=== PATIENT | female | born 1955 | race Caucasian/White ===

== ENCOUNTER → 2017-06-01 | Outpatient (CLI) | payer BC ==
[~2017-06-01] MED LIST: HCTZ; NORCO 5-325 TA1 EACH PO; SYNTHROID; ZOLOFT
== END ==
LOC: RAD 01:39
DX: Z12.31 Encounter for screening mammogram for malignant neoplasm of breast (principal)

== ENCOUNTER → 2018-06-02 | Outpatient (CLI) | payer BC | LOC: RAD 01:09 | DX: Z12.31 Encounter for screening mammogram for malignant neoplasm of breast (principal) ==

== ENCOUNTER → 2018-06-04 | Outpatient (CLI) | payer BC | LOC: RAD 14:25 | DX: R92.1 Mammographic calcification found on diagnostic imaging of breast (principal); R92.8 Other abnormal and inconclusive findings on diagnostic imaging of breast ==

== ENCOUNTER 2018-12-31 21:33 | Inpatient (IN) | payer BC ==
[~2018-12-31] VITALS: Ht 154.9 cm; Wt 64.0 kg
[2018-12-31 21:58] LABS: BASOPHILS 1.3 % (0.0-2.0); EOSINOPHILS 3.5 % (0.0-3.0); HEMATOCRIT 35.8 % (37.0-47.0); HEMOGLOBIN 12.2 gm/dL (12.0-15.0); LYMPHOCYTES 47.2 % (24.0-44.0); MCH 32.8 pg (26.0-34.0); MCV 96.4 fL (80.0-100.0); MONOCYTES 9.3 % (1.0-8.0); PLATELET COUNT 250 thou/uL (150-400); POLYS 38.7 % (36.0-66.0); RBC 3.71 mil/uL (4.20-5.00); RDW 12.5 % (10.5-14.5); WBC 7.7 thou/uL (4.0-11.0)
[2018-12-31 22:07] LABS: CALCIUM 8.2 mg/dL (8.5-10.1); CREATININE 0.5 mg/dL (0.6-1.0); POTASSIUM 3.7 mmol/L (3.5-5.1)
[2018-12-31 22:12] LABS: ALBUMIN 3.7 g/dL (3.4-5.0); TOTAL BILIRUBIN 0.3 mg/dL (<0.1-1.0); TOTAL PROTEIN 7.3 g/dL (6.4-8.2)
[2019-01-01] VITALS (7 sets, daily range): BP systolic 91–123; BP diastolic 34–83
--- NOTE | 2019-01-01 02:30 | NUR ---
Pt. admitted to the unit from the emergency room via stretcher accompanied by staff and her son. She is alert and oriented. Admission assessment and history is completed. She c/o left knee pain and was given pain med (see emar) with some relief. Zofran given for nausea (see emar) with relief. Also, ativan given for anxiety (see emar). Bed alarm is on.
[2019-01-01 04:13] LABS: CALCIUM 7.2 mg/dL (8.5-10.1); CREATININE 0.5 mg/dL (0.6-1.0); MAGNESIUM 1.4 mg/dL (1.8-2.4); POTASSIUM 3.6 mmol/L (3.5-5.1)
[2019-01-01 04:36] LABS: HEMATOCRIT 32.6 % (37.0-47.0); HEMOGLOBIN 11.2 gm/dL (12.0-15.0); MCH 33.4 pg (26.0-34.0); MCHC 34.3 g/dL (28.0-37.0); MCV 97.2 fL (80.0-100.0); RBC 3.36 mil/uL (4.20-5.00); RDW 12.4 % (10.5-14.5); WBC 9.1 thou/uL (4.0-11.0)
[2019-01-01 08:28] LABS: ALBUMIN 3.1 g/dL (3.4-5.0); CREATININE 0.5 mg/dL (0.6-1.0); POTASSIUM 3.7 mmol/L (3.5-5.1); TOTAL BILIRUBIN 0.6 mg/dL (<0.1-1.0); TOTAL PROTEIN 6.2 g/dL (6.4-8.2)
[2019-01-01 09:05] LABS: URINE BILIRUBIN NEGATIVE (Negative); URINE BLOOD 1+ (Negative); URINE CLARITY CLEAR; URINE COLOR YELLOW; URINE GLUCOSE-RANDOM* NEGATIVE (Negative); URINE KETONES 1+ (Negative); URINE LEUKOCYTES-REFLEX NEGATIVE (Negative); URINE NITRITE-REFLEX NEGATIVE (Negative); URINE PROTEIN (DIPSTICK) NEGATIVE (Negative); URINE UROBILINOGEN 0.2 E.U./dl (0.2-1.0)
[2019-01-01 09:17] LABS: BACTERIA-REFLEX None Seen /HPF (None Seen); CASTS None Seen /LPF (None Seen); CRYSTALS None Seen /LPF (None Seen); SQUAMOUS 0-3 Few /LPF (0-3); URINE RBC 0-2 Rare /HPF (0-2); URINE WBC-REFLEX 0-5 Rare /HPF (0-5)
--- NOTE | 2019-01-01 20:41 | NUR ---
PATIENT ALERT AND ORIENTED. PATIENT ANTICIPATING SURGERY TOMORROW AM WITH MD EUGENE. PATIENT SISTER, LEA, VERY SUPPORTIVE ([phone]) AND SON ABDULLAHI AT BEDSIDE IN ADDITION TO MANY FRIENDS AND FAMILY MEMBERS. NIGHT NURSE INFORMED OF ICE PACKS TO LEG AND TO NOTIFY CASH VAN SALESPERSON IF NA LAB LEVEL BELOW 130. PATIENT PAIN CONTROLLED WITH IV AND PO PAIN MEDS. PLAN OF CARE EXPLAINED TO PATIENT AND FAMILY.
[2019-01-02 03:37] VITALS: BP 122/56
--- NOTE | 2019-01-02 04:03 | NUR ---
Pt. has rested quietly at intervals during the night when checked on during frequent rounds. She has been medicated for c/o pain to the left knee (see emar) with some relief noted. Pt. also requesting some meds to help her relax and prn ativan given (see emar) with some relief noted. Na level gradually increasing. Francie DE LUNA notified of 0000 Na that resulted with new orders to increase ivf to 125 ml/hr. Immobilzer in place to left knee. Ice packs being applied throughout the shift. Bed alarm is on.
[2019-01-02 05:22] LABS: HEMATOCRIT 32.4 % (37.0-47.0); HEMOGLOBIN 11.2 gm/dL (12.0-15.0); MCH 33.7 pg (26.0-34.0); MCHC 34.6 g/dL (28.0-37.0); MCV 97.4 fL (80.0-100.0); PLATELET COUNT 192 thou/uL (150-400); RBC 3.32 mil/uL (4.20-5.00); RDW 12.4 % (10.5-14.5); WBC 5.7 thou/uL (4.0-11.0)
[2019-01-02 05:34] LABS: CALCIUM 7.5 mg/dL (8.5-10.1); CREATININE 0.5 mg/dL (0.6-1.0); POTASSIUM 3.3 mmol/L (3.5-5.1)
[2019-01-02 06:06] LABS: ABSOLUTE NEUTROPHILS 3.8 thou/uL (1.4-8.2)
[2019-01-02 06:08] LABS: PLATELET ESTIMATE NORMAL
[2019-01-02 08:10] VITALS: BP 128/64
[2019-01-02 16:45] VITALS: BP 137/73; BP 146/53
--- NOTE | 2019-01-02 18:40 | NUR ---
Assumed pt care this am, was on NPO for ortho procedure at 8:30am. FC patent and draining light yellow urine.Pt returned from OR early in the afternoon. started on clear liquids and to advance as tolerated. Family was at bedside when pt returned from OR. Ice pacs placed, immobilizer and dressing intact. Hemovac draing bright red blood. Pain managed with medications, pt prefers to have lgiths and door closed. POC followed no other issues or concerns verbalized.
[2019-01-02 20:11] VITALS: BP 118/45
[2019-01-02 20:34] VITALS: BP 118/45
[2019-01-03 00:05] VITALS: BP 122/53
--- NOTE | 2019-01-03 05:53 | NUR ---
PT IS POST OP DAY 1 AND IS AOX4. PT HAS POST OP PAIN AND REQUESTED PAIN MEDS NEEDED. HEMOVAC AND CATHETER PATIENT. NO N/V COMPLAINTS. DIET IS BEING ADVANCED TOLERATED. NO OTHER QUESTIONS OR CONCERNS AT THIS TIME. WILL CONTINUE TO MONITOR.
[2019-01-03 05:56] LABS: HEMATOCRIT 23.8 % (37.0-47.0); MCH 33.4 pg (26.0-34.0); MCHC 34.4 g/dL (28.0-37.0); MCV 97.3 fL (80.0-100.0); PLATELET COUNT 177 thou/uL (150-400); RBC 2.45 mil/uL (4.20-5.00); RDW 12.8 % (10.5-14.5); WBC 8.3 thou/uL (4.0-11.0)
[2019-01-03 06:04] LABS: HEMOGLOBIN 8.2 gm/dL (12.0-15.0)
[2019-01-03 06:20] LABS: CALCIUM 6.9 mg/dL (8.5-10.1); CREATININE 0.5 mg/dL (0.6-1.0); MAGNESIUM 1.6 mg/dL (1.8-2.4); PHOSPHORUS 1.8 mg/dL (2.5-4.9); POTASSIUM 3.1 mmol/L (3.5-5.1)
[2019-01-03 06:47] LABS: ABSOLUTE NEUTROPHILS 5.1 thou/uL (1.4-8.2); ATYPICAL LYMPHS 1 %; LARGE PLATELETS RARE
[2019-01-03 08:00] VITALS: BP 98/51
[2019-01-03 09:00] VITALS: BP 98/51
[2019-01-03 15:00] VITALS: BP 117/60
--- NOTE | 2019-01-03 16:26 | NUR ---
ASSUMED CARE OF PT AT 0700. ASSESSMENT COMPLETED. A&O,X4. C/O LEFT KNEE PAIN, PO PAIN MEDS GIVEN ORDERED. LEFT IMMOBILIZER, BILATERAL PHILIP HOSE IN PLACE. LEFT +2 EDEMA, ICE AND ELEVATION. CPM ARRIVED AND FITTED TODAY. PT COMPLETED A TOTAL OF 4 HOURS CPM, 0-30 DEGREES ORDERED FOR POD 1. HEMOVAC AND ZAMORA IN PLACE. LOW MG+ AND K+, REPLACEMENT GIVEN ORDERED. NO OTHER CHANGE IN STATUS. PT IN STABLE CONDITION.
--- NOTE | 2019-01-03 16:59 | NUR ---
PT ADMITTED RELATED TO LT TIB PLATEAU FX S/P ORIF. CM REVIEWED CHART AND SPOKE WITH CARE TEAM. CM MET WITH PT AT BEDSIDE THIS SAY. PT IS A&O X4. CM ROLE INTRODUCED. PT INDICATED SHE LIVES IN A 4 PLEX WITH 4 STEPS TO ENTER THEN ALL NEEDS ON 1 LEVEL. 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 CM PROVIDED PT WITH [facility] LIST AND PT IS INTERESTED IN ADMISSION TO SO THEY WILL ASSESS TOMORROW. CM TO FOLLOW INDICATED WITH DC PLANNING.
[2019-01-03 19:41] VITALS: BP 123/71
[2019-01-04 03:29] VITALS: BP 132/73
--- NOTE | 2019-01-04 04:59 | NUR ---
ASSUMED CARE OF PT AT 1900HRS. PT IS AOX4 AND IS POST OP DAY 2. PT'S PAIN WAS MANAGED WITH PO PAIN MEDS THIS SHIFT. PT WAS ABLE TO GET COMFORTABLE AND SLEEP THIS SHIFT. NO OTHER QUESTIONS OR CONCERNS AT THIS TIME. WILL CONTINUE TO MONITOR. PT IS PROGRESSING TOWARDS DC GOALS.
[2019-01-04 07:30] VITALS: BP 129/77
--- NOTE | 2019-01-04 09:44 | O ---
[address] [address] OPERATIVE REPORT Name: AMERICO CHAN Room #: 462-P ADM IN M.R.#: [id number] Admission: 01/01/19 ������������������ Attend Phys: Christian Kumar MD Discharge: ������������������ Date of : 57 Report #: [id number] THIS REPORT FOR: //name// CC: Tino Moody NO PCP Waldemar Arambula DATE OF SERVICE: 01/02/2019 SERVICE: Orthopedics. FACILITY: [facility]. SURGEON: Tino Moody MD SCADA ENGINEER: Brit Avery NP. INDICATION FOR SCADA ENGINEER: Assistance with provisional reduction, temporary fixation and reconstruction. PREOPERATIVE DIAGNOSES: 1. Status post fall. 2. Osteoporosis. 3. Bicondylar intra-articular highly comminuted left tibial plateau fracture. POSTOPERATIVE DIAGNOSES: 1. Status post fall. 2. Osteoporosis. 3. Bicondylar intra-articular highly comminuted left tibial plateau fracture. 4. Left knee lateral meniscus tear. PROCEDURE: 1. Open reduction and internal fixation of left bicondylar tibial plateau fracture with medial and lateral plate. 2. Open lateral meniscus repair. COMPLICATIONS: None. DRAINS: One Hemovac. SPCEIMENS: None. ANESTHESIA TYPE: General with regional. FINDINGS: 1. Highly comminuted intra-articular tibial plateau fracture with a posterior [address] [address] OPERATIVE REPORT Name: AMERICO CHAN Room #: 462-P [facility] IN .R.#: [id number] Admission: 01/01/19 ������������������ Attend Phys: Christian Kumar MD Discharge: ������������������ Date of : 57 Report #: [id number] 50% of the lateral articular cartilage supported by subchondral bone with essentially a loose flap of cartilage which was supported with an impaction grafting and rebar fixation essentially with the lateral Synthes small fragment tibial plateau plate. 2. Medial buttress placed with the locking T plate. 3. Lateral meniscus capsule repair with #1 Vicryl. HISTORY AND INDICATIONS: The patient is a female who sustained a fall 2 nights ago resulting in a displaced intra-articular comminuted bicondylar tibial plateau fracture. She had significant intoxication and had a very low sodium, so she was admitted for medical management, was indicated for surgery when her intoxication resolved and her electrolyte imbalance was in a stable situation. I had a long discussion preoperatively with her and her family members about the risks, benefits, alternatives and indication for surgical treatment as well as the high likelihood of some complication postoperatively secondary to the nature of the injury, specifically posttraumatic arthritis as well as the need for further surgery in the future including hardware removal and for arthroplasty. Risks also include but not limited to pain, bleeding, infection, injury to nerves or blood vessels, persistent pain despite surgical intervention, failure of the reconstruction, progression of any preexisting articular cartilage injury, stiffness, need for further surgery as well as complications related to anesthesia. Despite these risks, she wished to proceed. PROCEDURE IN DETAIL: After left lower extremity was correctly identified as the operative extremity, the patient underwent placement of a single shot regional nerve block by anesthesia staff, taken to the operating room where general anesthesia was induced without complication. Tourniquet was applied to the left leg. She was padded appropriately. Prophylactic antibiotics were administered at appropriate time. Left leg was prepped and draped in standard sterile fashion. Time-out procedure was performed. A lateral approach was made based off Gerdy's tubercle as well as localized around the fibular head. Full-thickness skin flaps were developed and meticulous soft tissue technique was utilized. The IT band was incised and then the anterior compartment musculature was peeled back off of the anterolateral aspect of the tibia, exposing the fracture site as well with tibial shaft. Due to the extent of the comminution and osteopenia, I selected long plate to allow for forced distribution along the shaft and then spent the majority of the time focusing on the posterior aspect of the lateral articular cartilage of bilateral tibial plateau with articular cartilage was highly comminuted and very loose as stated above. The posterior nearly 50% was a void of bone and the cartilage then depressed into the void, and there was no subchondral bone attached to the cartilage in this area. It could be mobilized with a finger site. The vast majority of the articular [address] [address] OPERATIVE REPORT Name: CHANAMERICO Room #: 462-P [facility] IN M.R.#: [id number] Admission: 01/01/19 ������������������ Attend Phys: Christian Kumar MD Discharge: ������������������ Date of : 57 Report #: [id number] cartilage remained as one unit with the rest of the knee, other than the intra-articular fracture and displacement. The joint line was identified and then the synovial lining was incised and a submeniscal arthrotomy was performed. There was a meniscal capsular injury and so #1 Vicryl sutures were placed for later meniscal repair. Visualization of the articular surface was achieved and in a gentle fashion, the hematoma was debrided and then the articular cartilage was elevated and cancellous autograft bone was packed into the defect, and then provisional fixation was achieved under fluoroscopy. The plate was placed and appeared to be in a good position. The primary issue was again the bone deficiency posterolaterally, so I did place the plate as close to the articular surface as possible, but I could directly visualize the plate and the articular surface and ensure that it did not encroach the level of the joint. K-wire was used as a subchondral marker. Then, 3 total K-wires were placed through the plate as provisional fixation. At this point, I was happy with the alignment on fluoroscopy and placed the first screw proximally in a compression fashion which closed down the fracture quite well and reduced with a normal medial lateral width of the tibial plateau. A second screw was then placed in a locking technique after the compression have been achieved, and then, I placed the provisional fixation pin in the shaft segment to hold it in terms of alignment on the sagittal plane. The subchondral rafter screws were then placed in the proximal portion of the plate. A total of 4 screws here and then under fluoroscopy, I assessed the varus valgus alignment. The plate was in varus at this point, which was anticipated and then the distal guide pin was removed. Valgus reduction maneuver was performed and then it was repined. Under careful fluoroscopic visualization, I then placed the nonlocking screws in the shaft starting proximally on the shaft and drawing the plate down to the bone while ensuring that we held the leg in appropriate position so as to not reduce the fracture in the varus. 3 cortical screws were placed with excellent bicortical purchase, finding 6 cortices of a strong bite and then the kickstand screw was placed into the metaphysis. The #1 vicryl sutures were then passed through the plate which sat just below the articular surface and tied to repair the lateral meniscus capsular injury and arthrotomy. The alignment was appropriate both the medial and lateral articular surfaces as well as the varus valgus alignment as well as the posterior slope on the lateral view on both planes of x-ray at this point, however, the comminution was pronounced, especially extending across the medial side, and I was concerned with her history of alcoholism as she would have difficulty being compliant with 3 months of nonweightbearing while this healed. Therefore, I elected for a second plate to stabilize the medial column and provide some enhanced stability. An incision was made on the medial aspect of the knee. Dissection was taken down protecting the saphenous vein. The hamstring tendons were identified, and they were tagged and retracted out of the way. The fracture was then visualized and the locking T plate was then placed and provisionally fixed onto the tibia, [address] [address] OPERATIVE REPORT Name: ROCIOAMERICO GARCIAN Room #: 462-P [facility] IN M.R.#: [id number] Admission: 01/01/19 ������������������ Attend Phys: Christian Kumar MD Discharge: ������������������ Date of : 57 Report #: [id number] and I checked 2 planes of x-ray to confirm its position. I rotated the plate in a counterclockwise fashion to allow the posterior proximal screw to purchase some of the posterior bone proximally and then put the first screw in the plate in the center hole proximally and then used a nonlocking screw to draw the plate distally against the shaft. The remaining screw holes were filled with locking screws providing good fixation. Fluoroscopy was used throughout. At this point, the knee was felt to be well stabilized with the optimal reduction and construct. Wounds were copiously irrigated. Tourniquet was let down. Hemostasis was achieved. The anterior column musculature was then closed back over the plate and over a drain with 0 Vicryl [id number] stitches. The skin layer was closed with 2-0 Vicryl followed by skin dajuan. The medial side was closed with Vicryl and dajuan as well. Sterile dressings applied followed by compression stocking PolarCare device and a knee immobilizer. The patient was awakened from anesthesia and taken to recovery room in stable condition. There were no complications. All counts were reported as correct. After internal fixation was completed, final x-rays were taken and the wounds were copiously irrigated, attention was turned to the lateral meniscus repair. The #1 Vicryl sutures were then placed through the meniscus, were then passed through the K-wire holes and the plate allowing for a secure repair of the meniscal capsular junction laterally. These were then tied securely and then the anterior compartment musculature was closed over a drain with the 0 Vicryl suture in [id number] fashion. ��������������������������������������������� <ELECTRONICALLY SIGNED> ���������������������������������������� By: Tino Moody MD ��������������������������������������������� 01/04/19 0944 [id number] Tino Moody MD /nt
[2019-01-04] MEDS ORDERED: ENOXAPARIN30 MG/0.1 SUBQ (11:05)
[2019-01-04] MEDS ORDERED: COLACE 100 MG100 MG PO (11:06)
[2019-01-04] MEDS ORDERED: NORCO 5-325 TA1 EACH PO (11:06)
[2019-01-04] MEDS ORDERED: MAG-AL PLUS SUS30 ML PO (11:06)
[2019-01-04] MEDS ORDERED: PRENATAL PO (11:10)
[2019-01-04] MEDS ORDERED: VITAMIN B-1100 M2 PO (11:10)
[2019-01-04] MEDS ORDERED: MAGOX 400400 MG PO (11:10)
--- NOTE | 2019-01-04 12:09 | NUR ---
systems planner faxed skilled referral to [facility]. Patient is ready to dc now.
--- NOTE | 2019-01-04 14:50 | NUR ---
PATIENT SEEN BY HALLEY BARRIGA NP WITH DR. DIAZ, FOR ACUTE REHAB ASESSMENT. PATIENT PLANS PER PATIENT CHOICE TO GO TO SKILLED FACILITY. THANK YOU FOR THIS REFERRAL.
--- NOTE | 2019-01-04 15:22 | NUR ---
PT HAD REQUESTED THAT REFERRAL BE SENT TO [facility]. REFERRAL WAS SENT AND THEY INDICATED THAT THEY DON'T TAKE PT'S INSURANCE. SHE ASKED THAT REFERRAL BE SENT TO [facility] FOR REVIEW. CM CALLED AND SPOKE WITH ADMISSIONS AND THEY INDICATED THAT THEY LIKELY TAKE PT'S INSURANCE BUT WILL RUN IT. IF NOT THEY ARE INTERESTED IN [facility]OP. CM TO FOLLOW INDICATED WITH DC PLANNING.
[2019-01-04 15:40] VITALS: BP 134/74
--- NOTE | 2019-01-04 19:43 | NUR ---
ASSUMED CARE OF PT AT APPROX 0700. VSS. MONITORED ON TELE. ASSESSMENT CHARTED. POC FOLLOWED. DISCHARGE ORDERS FOR PT TODAY JUST WAITING ON PLACEMENT. PT HAS BEEN UPDATED ON POC AD COMMUNICATES UNDERSTANDING. WILL CONT TO MONITOR.
[2019-01-04 20:11] VITALS: BP 136/736
[2019-01-05 04:13] VITALS: BP 139/67
--- NOTE | 2019-01-05 05:51 | NUR ---
PT IS AOX4 AND WAS ABLE TO SLEEP THIS SHIFT. DC ORDERS RECEIVED TO A [facility] FACILITY. NO S/S OF ACUTE DISTRESS THIS SHIFT. NO QUESTIONS OR CONCERNS AT THIS TIME. WILL CONTINUE TO MONITOR.
[2019-01-05 07:31] VITALS: BP 128/61
--- NOTE | 2019-01-05 12:22 | NUR ---
DISCHARGE PLANNING. POST ACUTE RECOMMENDATION AT DISCHARGE. SPECIAL EDUCATION TEACHING ASSISTANT FAXED REFERRAL TO [facility] YESTERDAY AFTERNOON. CALL RECEIVED FROM [facility] PER UNIT SW, PTS CURRENT MED LIST WAS NOT ATTACHED WITH REFERRAL. MED LIST PRINTED AND FAXED TO [facility] ADMISSIONS. VERIFIED RECEIVED. FOLLOWING TO ASSIST WITH DISCHARGE PLACEMENT NEEDS.
[2019-01-05 14:12] VITALS: BP 126/59
--- NOTE | 2019-01-05 16:29 | NUR ---
THERE WERE EMAILS THAT INDICATED THAT ARGENIS RAINA WITH INSURANCE HAD GIVEN AUTH FOR PT TO DC TO [facility]. [facility] AND ASKED IF THEY HAD GOTTEN AUTH AND THEY INDICATED THAT THEY HADN'T EVEN SUBMITTED FOR IT OF OUR CALL. HE STATED THAT HE WOULD CALL AND INQUIRE. HE CALLED CM BACK AND HE INDICATED THAT THE ONLY AUTH THEY HAD ON FILE WAS FOR INPATIENT BUT THAT HE SUBMITTED FOR AUTH. CM TO FOLLOW INDICATED WITH DC PLANNING.
[2019-01-05 19:11] VITALS: BP 134/58
[2019-01-05 20:50] LABS: URINE BILIRUBIN NEGATIVE (Negative); URINE BLOOD NEGATIVE (Negative); URINE CLARITY CLEAR; URINE COLOR YELLOW; URINE GLUCOSE-RANDOM* NEGATIVE (Negative); URINE KETONES 2+ (Negative); URINE LEUKOCYTES NEGATIVE (Negative); URINE NITRITE NEGATIVE (Negative); URINE PROTEIN (DIPSTICK) NEGATIVE (Negative); URINE UROBILINOGEN 0.2 E.U./dl (0.2-1.0)
--- NOTE | 2019-01-05 21:28 | NUR ---
Assumed pt care this am, surgical site intact, in an immobilizer. Pt is able to ambulate not bearing weight on the afftected leg, using a walker from the bed to the commode and around the room. CPRM machine placed while the pt was on the chair for most of the day, tolerated well. POC followed. Polar pack ice changed and applied to the pt. Pt did complain of frequency in urination, a burning sensation when she wipes after urinating. Pt claims that she had chills dueing the afternoons but this was not witnessed. Collected a urine sample and sent to the lab. Endorsed to he night nurse. Pt did mention that company that handled the CPRM and the polar pack called her and informed her that when she moves she need not take the items. She will be provided with another set where ever she is going. endorsed to the night nurse to inform the day nurse. POC followed
[2019-01-06 02:54] VITALS: BP 133/61
[2019-01-06 07:30] VITALS: BP 133/66
--- NOTE | 2019-01-06 07:49 | NUR ---
Assumed care at 1845. Pt resting in bed. AOX4. VSS. Pt denies pain. Surgical dressing CDI. Immobilizer in place. CPRM machine in room. Polar pack in place on left leg surgical site. Pt should be discharging today to SNF. No identified needs at the moment. Will continue to monitor.
--- NOTE | 2019-01-06 15:09 | NUR ---
AUTH WAS RECEIVED FOR PT TO DC TO [facility] THIS DAY. CHART COPY ORDERED AND ORDERS FAXED. PT AND SON ARE AWARE. [facility] ARRANCED FOR 1630. REPORT TO BE CALLED TO AND ASKE FOR A. NO OTHER CM INTERVENTION INDICATED AT THIS TIME. CASE CLOSED.
--- NOTE | 2019-01-06 19:44 | NUR ---
PT A&OX4, VSS, DENIED PAIN. PT WAS UTILIZED BOTH PT AND OT TODAY. POLAR PACK IN PLACE. PT HAS BEEN UP TO BEDSIDE COMMODE WITH ASSIST. PT WAS ABLE TO AMBULATE WITH WALKER WITH PHYSICAL THERAPIST. PT DISCHARGED TO REHAB FACILITY. ALL BELONGINGS WITH PT.
== END 2019-01-06 19:58 | DRG 488 ==
LOC: ER 21:33 → EROBS 01-01 00:28 → 4W 01-01 00:28
PROVIDERS: Hospitalist; Nurse Practitioner Acute Care; Orthopaedic Surgery Sports Medicine; Physician Assistant; ADMIT Family Medicine
DX: S82.142A Displaced bicondylar fracture of left tibia, initial encounter for closed fracture (principal); E87.1 Hypo-osmolality and hyponatremia; Z90.710 Acquired absence of both cervix and uterus; Z60.2 Problems related to living alone; M81.0 Age-related osteoporosis without current pathological fracture; S83.282A Other tear of lateral meniscus, current injury, left knee, initial encounter; E03.9 Hypothyroidism, unspecified; M85.80 Other specified disorders of bone density and structure, unspecified site; F10.129 Alcohol abuse with intoxication, unspecified; K21.9 Gastro-esophageal reflux disease without esophagitis; E87.6 Hypokalemia; E83.39 Other disorders of phosphorus metabolism; E83.42 Hypomagnesemia; W18.39XA Other fall on same level, initial encounter; Z88.6 Allergy status to analgesic agent; Z83.3 Family history of diabetes mellitus; Z79.899 Other long term (current) drug therapy; Y93.89 Activity, other specified; Y92.098 Other place in other non-institutional residence as the place of occurrence of the external cause; Y99.8 Other external cause status
CPT/HCPCS: 10045; 50010; 50101; 50341; 50386; 50567; 51132; 51412; 53170; 53347; 55430; 56525; 56528; 56667; 57091; 57180; 57214; 62110; 62900; 64037; 70005

== ENCOUNTER → 2019-02-02 | Outpatient (CLI) | payer BC ==
[~2019-02-02] MED LIST changes: +COLACE 100 MG100 MG PO; +ENOXAPARIN30 MG/0.1 SUBQ; +MAG-AL PLUS SUS30 ML PO; +MAGOX 400400 MG PO; +PRENATAL PO; +VITAMIN B-1100 M2 PO
== END ==
LOC: HYPER 02-01 09:18
DX: T81.31XD Disruption of external operation (surgical) wound, not elsewhere classified, subsequent encounter (principal); M81.0 Age-related osteoporosis without current pathological fracture; E87.1 Hypo-osmolality and hyponatremia; F10.229 Alcohol dependence with intoxication, unspecified; Y83.8 Other surgical procedures as the cause of abnormal reaction of the patient, or of later complication, without mention of misadventure at the time of the procedure

== ENCOUNTER → 2019-02-16 | Outpatient (CLI) | payer BC | LOC: HYPER 06:49 | DX: T81.31XD Disruption of external operation (surgical) wound, not elsewhere classified, subsequent encounter (principal); L97.822 Non-pressure chronic ulcer of other part of left lower leg with fat layer exposed; M81.0 Age-related osteoporosis without current pathological fracture; E87.1 Hypo-osmolality and hyponatremia; F10.229 Alcohol dependence with intoxication, unspecified; Y83.8 Other surgical procedures as the cause of abnormal reaction of the patient, or of later complication, without mention of misadventure at the time of the procedure ==

== ENCOUNTER → 2019-06-06 | Outpatient (CLI) | payer BC | LOC: RAD 03:42 | DX: Z12.31 Encounter for screening mammogram for malignant neoplasm of breast (principal) ==